=== PATIENT | male | born 1995 | race Caucasian/White ===

== ENCOUNTER 2024-07-01 13:28 | Emergency (ER) | payer OTHER ==
[~2024-07-01] VITALS: Ht 177.8 cm; Wt 87.4 kg
[2024-07-01 16:53] VITALS: BP 126/64; TEMP 98.4; O2SAT 100
[2024-07-01] MEDS: BOOSTRIX VACCINE (TETANUS/DIPHTH/ACEL. PERTUSSIS) 0.5ML SYR IM.IMMUN ONE (16:59)
[2024-07-01] MEDS ORDERED: CEPH500C PO (17:03)
== END 2024-07-01 17:12 | disposition home or self-care (01) ==
LOC: M ED 13:28
DX: S51.822A Laceration with foreign body of left forearm, initial encounter (principal); Y92.9 Unspecified place or not applicable; Y93.9 Activity, unspecified; Y99.0 Civilian activity done for income or pay; Z23 Encounter for immunization; Z91.018 Allergy to other foods; Z91.013 Allergy to seafood; Z79.2 Long term (current) use of antibiotics

== ENCOUNTER 2024-07-03 09:36 | Day surgery (SDC) | payer OTHER ==
[~2024-07-03] VITALS: Ht 177.8 cm; Wt 87.2 kg
[~2024-07-03 09:36] MED LIST: CEPH500C PO; NS (Normal Saline) 0.9% 1,000 ML IV SCH
[2024-07-03] MEDS ORDERED: propofoL 200 MG/20 ML VIAL As Ordered ONE (10:18)
[2024-07-03] MEDS ORDERED: ONDANSETRON 4MG 2ML VIAL As Ordered ONE (10:18)
[2024-07-03] MEDS ORDERED: LIDOCAINE 2% 100MG/5ML SDV (FOR ANES.) As Ordered ONE (10:18)
[2024-07-03] MEDS ORDERED: fentaNYL 100 MCG/2 ML INJECTION As Ordered ONE (11:45)
[2024-07-03] MEDS ORDERED: MIDAZOLAM INJ 2MG/2ML VIAL As Ordered ONE (11:45)
[2024-07-03] MEDS ORDERED: KETOROLAC 60MG 2ML VIAL As Ordered ONE (12:21)
[2024-07-03] MEDS: ceFAZolin SOD 2 GM in IV 1 EA IV ONE (13:06)
[2024-07-03] MEDS ORDERED: ACETAMINOPHEN 1000MG/100ML IV BAG As Ordered ONE (13:09)
[2024-07-03] MEDS ORDERED: fentaNYL 100 MCG/2 ML INJECTION IV PRN (13:45)
[2024-07-03] MEDS ORDERED: HYDROMORPHONE HCL 0.5 MG/ 0.5 ML SYRINGE IV PRN (13:45)
[2024-07-03] MEDS ORDERED: NS (Normal Saline) 0.9% 1,000 ML IV SCH (13:45)
[2024-07-03] MEDS ORDERED: ONDANSETRON 4MG 2ML VIAL IV PRN (13:45)
[2024-07-03] MEDS ORDERED: oxyCODONE 5MG TAB PO PRN (13:45)
[2024-07-03 14:45] VITALS: BP 128/71; TEMP 96.9; O2SAT 100
== END 2024-07-03 15:06 | disposition home or self-care (01) ==
LOC: M SDC 09:36
PROVIDERS: ATTEND Orthopaedic Surgery
DX: S51.822A Laceration with foreign body of left forearm, initial encounter (principal); W45.8XXA Other foreign body or object entering through skin, initial encounter; W22.8XXA Striking against or struck by other objects, initial encounter; Y93.89 Activity, other specified; Y92.9 Unspecified place or not applicable; Z87.891 Personal history of nicotine dependence; Z91.013 Allergy to seafood; Z91.018 Allergy to other foods
CPT/HCPCS: 10120; 76000; J0131; J0665; J0690; J1100; J1885; J2250; J2405; J3010

== ENCOUNTER → 2024-07-17 | Outpatient (CLI) | payer OTHER ==
[~2024-07-17] MED LIST changes: -NS (Normal Saline) 0.9% 1,000 ML IV SCH
== END ==
LOC: M SOG 07:59
PROVIDERS: ATTEND Physician Assistant
DX: S51.822D Laceration with foreign body of left forearm, subsequent encounter (principal)